=== PATIENT | male | born 1965 | race Caucasian/White ===

== ENCOUNTER 2024-09-05 04:51 | Emergency (ER) | payer OTHER, SELFPAY ==
[2024-09-05 04:53] VITALS: BP 142/93
[2024-09-05 05:04] VITALS: BP 149/100; BMI 30.3
--- NOTE | 2024-09-05 05:10 | ED.GENMED ---
History of Present Illness
<Hernan Corbett DO - Last Filed: 09/05/24 05:12>
General
Chief Complaint: Heart Rate Problem
Source: patient
Time Seen by Provider: 09/05/24 05:01
History of Present Illness
History of Present Illness:
59-year-old male presents to the emergency room complaining of pain in his right shoulder and chest. Patient was sleeping when he was awake and with pain in his right posterior thorax near the shoulder. Pain was worse with deep breath. Thought
perhaps he was sleeping wrong. He got out of bed and eventually fell back to sleep for short period of time but then awoke feeling the pain now more into his mid back and chest. He feels short of breath. He noted his heart rate was fast. Patient
has a history of hypertension high cholesterol. Denies any cardiac history. Denies any history of thromboembolic disease. Patient states that he moved his child into college in [facility]. It was a 6-hour ride there and back though not on
the same day. He denies any lower extremity pain. No fever or chills. No cough.
Phy Exam
<Hernan Corbett DO - Last Filed: 09/05/24 05:12>
Physical Exam
Physical Exam:
General: Awake, Alert, Oriented X3. Patient appears uncomfortable
Vitals: Tachycardic
Head: Atraumatic
Eyes: Pupils equal, EOMI
Throat: Airway intact, no exudates
Neck: Trachea midline
Lungs: Clear and equal b/l
Heart: Regular rate, no murmurs
Abd: Soft, Nontender, No pulsatile mass
Neuro: Nonfocal
Skin: Warm, dry, no rash
Extremities: pulses equal b/l, no edema
Scores
<Everett Cano DO - Last Filed: 09/05/24 13:30>
Heart Score for Chest Pain Patients
History: Slightly or Non-Suspicious
ECG: Nonspecific Repolarization
Age: >45 - <65 years
Risk Factors: 1 or 2 Risk Factors
Troponin: </= Normal Limit
Heart Score for Chest Pain Patients: 3
Heart Score Risk: 2.5% MACE over next 6 weeks
Course
Dukelt;Hernan SiomaraDebbie Corbett, DO - Last Filed: 09/05/24 05:12>
Orders/Labs/Results
Orders:
Orders
09/05/24 04:53
EKG- Treatment ONCE
09/05/24 04:57
Electrocardiogram (*1) Urgent
Reason for Study: Chest Pain
EKG- Treatment ONCE
09/05/24 05:08
Ketorolac [Toradol] 15 mg IV NOW STA
09/05/24 05:09
CT Chest PE Study Urgent
Comment:
Reason For Exam: pleuritic cp, recent travel
Cardiac Monitoring- Treatment ONCE
0.9% Sodium Chloride 1000 ml [Nss] 1,000 ml IV BOLUS
09/05/24 05:16
Complete Blood Count/With Diff Urgent
Comprehensive Metabolic Panel Urgent
Comment: ADD ON
D-Dimer Urgent
Lipase Urgent
Comment: ADD ON
PTT Urgent
Prothrombin Time Urgent
Troponin I Urgent
09/05/24 05:23
Ketorolac [Toradol] 15 mg .ROUTE .STK-MED ONE
09/05/24 07:39
Acetaminophen [Tylenol] 650 mg PO NOW STA
09/05/24 07:46
Troponin I Urgent
09/05/24 07:56
Add On- LAB Urgent
Tests Added?: cmp, lipase
US Abdomen Complete/Upper Urgent
Comment:
Reason For Exam: pian
09/05/24 08:17
ECG [Electrocardiogram (*1)] Urgent
Reason for Study: Chest Pain
Other Reason for Exam: repeat trop
09/05/24 08:18
EKG- Treatment ONCE
Abnormal Lab Results
09/05/24
05:16
WBC 12.1 H 10^3/uL
(4.8-10.8)
RBC 4.23 L 10^6/uL
(4.70-6.10)
MCV 96.7 H fL
(80.0-94.0)
MCH 35.0 H pg
(27.0-31.0)
Absolute Neuts (auto) 9.3 H 10^3/uL
(1.4-6.5)
Absolute Monos (auto) 0.9 H 10^3/uL
(0.1-0.6)
Neutrophils % 76.6 H %
(42.2-75.2)
Lymphocytes % 14.8 L %
(20.5-51.1)
Glucose 123 H mg/dl
(70-99)
09/05/24 05:16
09/05/24 05:16
Vital Signs
Initial and Last Documented VS:
Initial Vital Signs
Temp Pulse Resp BP Pulse Ox
98.8 F 109 18 142/93 98
09/05/24 04:53 09/05/24 04:53 09/05/24 04:53 09/05/24 04:53 09/05/24 04:53
Last Documented Vital Signs
Temp Pulse Resp BP Pulse Ox
99.5 F 88 28 108/77 98
09/05/24 05:12 09/05/24 08:00 09/05/24 08:00 09/05/24 08:00 09/05/24 08:07
Dukelt;Everett Cano, DO - Last Filed: 09/05/24 13:30>
Orders/Labs/Results
Orders:
Orders
09/05/24 04:53
EKG- Treatment ONCE
09/05/24 04:57
Electrocardiogram (*1) Urgent
Reason for Study: Chest Pain
EKG- Treatment ONCE
09/05/24 05:08
Ketorolac [Toradol] 15 mg IV NOW STA
09/05/24 05:09
CT Chest PE Study Urgent
Comment:
Reason For Exam: pleuritic cp, recent travel
Cardiac Monitoring- Treatment ONCE
0.9% Sodium Chloride 1000 ml [Nss] 1,000 ml IV BOLUS
09/05/24 05:16
Complete Blood Count/With Diff Urgent
Comprehensive Metabolic Panel Urgent
Comment: ADD ON
D-Dimer Urgent
Lipase Urgent
Comment: ADD ON
PTT Urgent
Prothrombin Time Urgent
Troponin I Urgent
09/05/24 05:23
Ketorolac [Toradol] 15 mg .ROUTE .STK-MED ONE
09/05/24 07:39
Acetaminophen [Tylenol] 650 mg PO NOW STA
09/05/24 07:46
Troponin I Urgent
09/05/24 07:56
Add On- LAB Urgent
Tests Added?: cmp, lipase
US Abdomen Complete/Upper Urgent
Comment:
Reason For Exam: pian
09/05/24 08:17
ECG [Electrocardiogram (*1)] Urgent
Reason for Study: Chest Pain
Other Reason for Exam: repeat trop
09/05/24 08:18
EKG- Treatment ONCE
Abnormal Lab Results
09/05/24
05:16
WBC 12.1 H 10^3/uL
(4.8-10.8)
RBC 4.23 L 10^6/uL
(4.70-6.10)
MCV 96.7 H fL
(80.0-94.0)
MCH 35.0 H pg
(27.0-31.0)
Absolute Neuts (auto) 9.3 H 10^3/uL
(1.4-6.5)
Absolute Monos (auto) 0.9 H 10^3/uL
(0.1-0.6)
Neutrophils % 76.6 H %
(42.2-75.2)
Lymphocytes % 14.8 L %
(20.5-51.1)
Glucose 123 H mg/dl
(70-99)
09/05/24 05:16
09/05/24 05:16
Vital Signs
Initial and Last Documented VS:
Initial Vital Signs
Temp Pulse Resp BP Pulse Ox
98.8 F 109 18 142/93 98
09/05/24 04:53 09/05/24 04:53 09/05/24 04:53 09/05/24 04:53 09/05/24 04:53
Last Documented Vital Signs
Temp Pulse Resp BP Pulse Ox
99.5 F 88 28 108/77 98
09/05/24 05:12 09/05/24 08:00 09/05/24 08:00 09/05/24 08:00 09/05/24 08:07
<Hernan Corbett DO - Last Filed: 09/05/24 05:12>
*Pulse Oximetry
SaO2: 98
Oxygen Mode of Delivery: Room air
*EKG
Interpreted by ED Provider?: Yes
Interpretation: abnormal
Heart Rate: 105
Rate: tachycardiac
Rhythm: sinus arrhythmia
[place]: normal axis
Interval: normal interval
QRS Pattern: normal QRS
Ischemia: no ischemia
*Precipitator Supervisor Interpretation
Rate: tachycardiac
Interpretation: abnormal
Heart Rate: 105
Rhythm: sinus tachycardia
<Everett Cano, DO - Last Filed: 09/05/24 13:30>
*Pulse Oximetry
Patient hypoxic: no
*Critical Care Note
Total Time (30-74mins, 75-104mins- exclusive of procedures): Not Applicable
<Everett Cano, DO - Last Filed: 09/05/24 13:30>
Update Note
Update Note:
6 AM ER attending
7:30 AM update signout pending CT chest repeat troponin CT chest no central PE patient is feeling better once abdomen is soft and nontender has some reproducible pain over her sternum will try some acetaminophen, he has no lower abdominal pain
Patient also does drink alcohol will add LFTs lipase and abdominal ultrasound
Repeat labs noted and unremarkable ultrasound noted formal report pending
ED Attending Note
<Hernan Corbett, DO - Last Filed: 09/05/24 05:12>
-
Portions of this chart may have been created with voice recognition software.� Occasional wrong word or��sound alike� substitutions may have occurred due to the inherent limitations of voice recognition software.
Discharge Plan
Departure
Patient Disposition: Home (Routine Discharge)
Date of Disposition: 09/05/24
Time of Disposition: 09:28
Patient with high blood pressure during this ER visit?: No
Condition: Good
Covid-19: Not Applicable
Discharge Problem:
Chest pain
Instructions: Chest pain - Discharge instructions
Prescriptions:
No Action
multivitamin Tablet
1 tab PO DAILY
quinapril 40 mg Tablet
40 mg PO DAILY
ascorbic acid (vitamin C) [Vitamin C] 500 mg Tablet
500 mg PO DAILY
garlic 500 mg Tablet
500 mg PO DAILY
amlodipine 10 mg Tablet
10 mg PO DAILY
aspirin [Aspirin Child] 81 mg Tablet,Chewable
81 mg PO DAILY
coenzyme Q10 [Co Q-10] 30 mg Capsule
30 mg PO DAILY
rosuvastatin 10 mg Tablet
10 mg PO DAILY
hydrochlorothiazide 12.5 mg Tablet
25 mg PO DAILY
Referrals:
UNKNOWN - PT DOES,NOT KNOW [Unknown Provider]
Activity Restrictions/Additional Instructions:
Rest, Tylenol or ibuprofen for pain
Drink plenty of fluids
Limit your alcohol use
Interventions
Interventions:
*Risk Screen - Suicide Last Done: 09/05/24 04:53
*General Assessment Last Done: 09/05/24 04:53
*Neglect/Abuse Screening Last Done: 09/05/24 04:53
*ED- Fall Risk Assessment Last Done: 09/05/24 05:06
*ED COVID-19 Vaccine History Last Done: 09/05/24 05:06
*Nursing Disposition Last Done: 09/05/24 10:36
ED- Cardiac Assessment Last Done: 09/05/24 08:07
ED- Pulmonary Assessment Last Done: 09/05/24 08:07
Discharge Date and Time
Discharge Date/Time: 09/05/24 10:20
Print Language: LATVIAN
[2024-09-05] MEDS: TORADOL 15 MG IV (05:18)
[2024-09-05] MEDS: NSS 1000 IV (05:20)
[2024-09-05 05:23] LABS: Hematocrit 40.9 % (39.0-52.0); Hemoglobin 14.8 g/dL (13.0-18.0); Mean Corp Hgb Conc. 36.2 g/dL (33.0-37.0); Mean Corpuscular Volume 96.7 fL (80.0-94.0); Nucleated Red Blood Cells % 0 % (-); Platelet Count 216 10^3/uL (130-400); Red Cell Dist. Width 12.5 % (11.5-14.5)
[2024-09-05 05:37] LABS: INR 0.95; PT 13.0 Sec (11.4-14.6)
[2024-09-05 05:38] LABS: APTT 29.9 Sec (23.4-35.0)
[2024-09-05 05:40] LABS: D-Dimer 0.36 ug/mlFEU (0.00-0.50)
[2024-09-05 05:51] LABS: Blood Urea Nitrogen 10 mg/dl (9-20); Calcium 9.2 mg/dl (8.4-10.2); Carbon Dioxide 26 mmol/L (22-30); Chloride 105 mmol/L (98-107); Estimated Creatinine Clearance > 125 ml/min; Glucose 123 mg/dl (70-99); Potassium 3.7 mmol/L (3.5-5.1); Sodium 140 mmol/L (135-145); eGFR > 60.00
[2024-09-05 06:04] LABS: Troponin I < 0.012 ng/ml
[2024-09-05 06:30] VITALS: BP 120/83
[2024-09-05 07:00] VITALS: BP 110/79
[2024-09-05] MEDS: TYLENOL 650 MG PO (07:48)
[2024-09-05 08:00] VITALS: BP 108/77
[2024-09-05 08:28] LABS: Troponin I < 0.012 ng/ml
[2024-09-05 08:31] LABS: ALT (SGPT) 47 U/L (0-50); AST (SGOT) 41 U/L (17-59); Albumin 4.9 g/dl (3.5-5.0); Alkaline Phosphatase 86 U/L (38-126); Lipase 83 U/L (23-300); Total Protein 8.0 g/dl (6.3-8.2)
== END 2024-09-05 10:20 | disposition home or self-care (01) ==
LOC: EMR 04:51
PROVIDERS: Emergency Medicine; EMERGENCY PHYSICIAN Emergency Medicine; FAMILY PHYSICIAN Family Medicine
DX: R07.89 Other chest pain (principal); M25.511 Pain in right shoulder; W06.XXXA Fall from bed, initial encounter; E78.00 Pure hypercholesterolemia, unspecified; Z01.810 Encounter for preprocedural cardiovascular examination
CPT/HCPCS: 99284; 96374; 96361; 71275; 76700; 80053; 83690; 84484; 85025; 85379; 85610; 85730; 93005; Q9967

== ENCOUNTER 2024-09-18 04:20 | Observation (INO) | payer OTHER, SELFPAY ==
[2024-09-17 18:31] VITALS: BP 139/87
[2024-09-17 19:19] LABS: Hematocrit 40.5 % (39.0-52.0); Hemoglobin 14.6 g/dL (13.0-18.0); Mean Corp Hgb Conc. 36.0 g/dL (33.0-37.0); Mean Corpuscular Volume 95.7 fL (80.0-94.0); Nucleated Red Blood Cells % 0 % (-); Platelet Count 252 10^3/uL (130-400); Red Cell Dist. Width 12.2 % (11.5-14.5)
[2024-09-17 19:31] LABS: ALT (SGPT) 35 U/L (0-50); AST (SGOT) 27 U/L (17-59); Albumin 4.7 g/dl (3.5-5.0); Alkaline Phosphatase 72 U/L (38-126); Blood Urea Nitrogen 15 mg/dl (9-20); Calcium 9.7 mg/dl (8.4-10.2); Carbon Dioxide 30 mmol/L (22-30); Chloride 102 mmol/L (98-107); Glucose 95 mg/dl (70-99); Potassium 3.6 mmol/L (3.5-5.1); Sodium 139 mmol/L (135-145); Total Protein 7.8 g/dl (6.3-8.2); eGFR > 60.00
[2024-09-17 19:43] LABS: Troponin I < 0.012 ng/ml
[2024-09-17 20:42] VITALS: BP 125/91
[2024-09-17 22:00] VITALS: BP 132/92
[2024-09-17 23:00] VITALS: BP 123/91
[2024-09-17] MEDS: PROTONIX IV 40 MG IV (23:01)
[2024-09-17] MEDS: MORPHINE SULFATE 4 MG IV (23:02)
[2024-09-17 23:18] LABS: Lipase 92 U/L (23-300)
--- NOTE | 2024-09-17 23:27 | ED.GENMED ---
History of Present Illness
General
Chief Complaint: Chest Pain
Time Seen by Provider: 09/17/24 22:27
History of Present Illness
History of Present Illness:
59-year-old male with history of hypertension hyperlipidemia presenting for upper abdominal pain with radiation to his back. Patient reports symptoms are about 2 weeks ago at which time he was seen in the hospital. He had a cardiac workup which
was unremarkable. Subsequently followed up with his primary care doctor. Reports that earlier this afternoon, symptoms returned with upper abdominal pain, radiating up his chest into his back. Denies any known history of cardiac disease. Denies
any vomiting. Denies any trigger from unusual foods. Reports pain with ration, which causes some shortness of breath. Denies fever. Denies additional acute medical
Phy Exam
Physical Exam
Physical Exam:
General: Well-appearing, no clinical signs of dehydration, nontoxic and in no acute distress
HEENT: protecting airway
Neck: appears supple
CV: Normal heart rate, regular rhythm
Resp: No accessory muscle use, no increased work of breathing, lungs clear to auscultation bilaterally
Abd: Mild distention with generalized upper abdominal discomfort including epigastric, right upper quadrant, left upper quadrant. No rebound or guarding
Extremities: No deformities, no swelling
Neuro: alert, no focal neurologic deficit
: deferred
Rectal: deferred
Psych: Normal affect
Skin: Intact
Scores
Heart Score for Chest Pain Patients
STEMI patient?: No
History: Slightly or Non-Suspicious
ECG: Normal
Age: >45 - <65 years
Risk Factors: 1 or 2 Risk Factors
Troponin: </= Normal Limit
Heart Score for Chest Pain Patients: 2
Heart Score Risk: 2.5% MACE over next 6 weeks
Course
Orders/Labs/Results
Orders:
Orders
09/17/24 18:23
ECG [Electrocardiogram (*1)] Urgent
Reason for Study: Chest Pain
EKG- Treatment ONCE
09/17/24 18:54
Complete Blood Count/With Diff Urgent
Comprehensive Metabolic Panel Urgent
Lipase Urgent
Comment: ADD ON
Troponin I Urgent
09/17/24 22:47
Add On- LAB Urgent
Tests Added?: Lipase
09/17/24 22:56
CT Abd/pelvis W Iv Cont Urgent
Comment:
Reason For Exam: upper abdominal pain
Morphine Sulfate 4 mg IV NOW STA
09/17/24 22:58
Pantoprazole [Protonix IV] 40 mg IV NOW STA
09/18/24 01:12
Electrocardiogram (*1) Urgent
Reason for Study: Chest Pain
EKG- Treatment ONCE
Mag Hydrox/Al Hydrox/Simeth [Maalox] 30 ml PO NOW STA
09/18/24 01:35
Troponin I Urgent
Abnormal Lab Results
09/17/24
18:54
RBC 4.23 L 10^6/uL
(4.70-6.10)
MCV 95.7 H fL
(80.0-94.0)
MCH 34.5 H pg
(27.0-31.0)
Absolute Neuts (auto) 7.6 H 10^3/uL
(1.4-6.5)
Absolute Monos (auto) 0.8 H 10^3/uL
(0.1-0.6)
Lymphocytes % 19.3 L %
(20.5-51.1)
09/17/24 18:54
09/17/24 18:54
Vital Signs
Initial and Last Documented VS:
Initial Vital Signs
Temp Pulse BP Pulse Ox
98.4 F 89 139/87 98
09/17/24 18:31 09/17/24 18:31 09/17/24 18:31 09/17/24 18:31
Last Documented Vital Signs
Temp Pulse Resp BP Pulse Ox
98.3 F 91 19 116/84 94
09/17/24 20:42 09/18/24 03:00 09/18/24 03:00 09/18/24 03:00 09/18/24 03:00
MDM/Problems Addressed
MDM/Problems Addressed:
59-year-old male presenting for return of upper abdominal discomfort with radiation to the chest. Vital signs on arrival are normal.
On exam, patient is resting comfortably, however does appear uncomfortable secondary to symptoms. EKG obtained on arrival, no acute ischemic abnormality or significant change prior. ED visit reviewed from 09/05, extensive workup including CT of the
chest, without evidence of PE, normal appearance of the aorta. For this reason, without present concern for PE or aortic dissection. Patient also had a right upper quadrant ultrasound completed, notes and history of alcohol usage, focal right
upper quadrant tenderness, without acute abnormality on ultrasound imaging. Labs repeated prior to my assessment, undetectable troponin. Again without present concern for ACS. Will add on lipase and proceed with dedicated CT abdomen imaging given
location of present pain and return of symptoms. Morphine and pantoprazole administered for pain, with possibility of gastritis.
01:00 -CT without acute process. Reports that pain has improved, still present. For this reason we will send second troponin. However at this time ultimately suspect quality of symptoms.
03:00 - Repeat troponin is undetectable. Patient otherwise remained stable. Feel stable for discharge, however on reassessment, patient is still reporting severe pain. Patient ambulated and continues to report dyspnea. He notes that his pain is
no worse and he does not feel comfortable going home given his level of pain. This reason will admit for cardiac consultation, possible GI consultation.
*Pulse Oximetry
SaO2: 94
Oxygen Mode of Delivery: Room air
Patient hypoxic: no
*EKG
Interpreted by ED Provider?: Yes
EKG Intrepretation Date: 09/17/24
EKG Intrepretation Time: 23:30
Interpretation: normal
Comparison EKG: no changes
Heart Rate: 85
Rate: normal
Rhythm: sinus
[place]: normal axis
Interval: normal interval
QRS Pattern: normal QRS
Ischemia: no ischemia
*Critical Care Note
Total Time (30-74mins, 75-104mins- exclusive of procedures): Not Applicable
ED Attending Note
-
Portions of this chart may have been created with voice recognition software.� Occasional wrong word or��sound alike� substitutions may have occurred due to the inherent limitations of voice recognition software.
Discharge Plan
Departure
Patient Disposition: Admit
Date of Disposition: 09/18/24
Time of Disposition: 02:24
Presentation/result/management discussed w/ accepting /: Hospitalist
Patient with high blood pressure during this ER visit?: No
Condition: Good
Discharge Problem:
Abdominal pain, epigastric
Prescriptions:
New
pantoprazole 20 mg tablet,delayed release (DR/EC)
20 mg PO DAILY Qty: 30 0RF
alum-mag hydroxide-simeth [Maalox Advanced] 200-200-20 mg/5 mL suspension
10 ml PO QID PRN (Reason: dyspepsia) Qty: 3000 0RF
No Action
multivitamin Tablet
1 tab PO DAILY
quinapril 40 mg Tablet
40 mg PO DAILY
ascorbic acid (vitamin C) [Vitamin C] 500 mg Tablet
500 mg PO DAILY
garlic 500 mg Tablet
500 mg PO DAILY
amlodipine 10 mg Tablet
10 mg PO DAILY
aspirin [Aspirin Child] 81 mg Tablet,Chewable
81 mg PO DAILY
coenzyme Q10 [Co Q-10] 30 mg Capsule
30 mg PO DAILY
rosuvastatin 10 mg Tablet
10 mg PO DAILY
hydrochlorothiazide 12.5 mg Tablet
25 mg PO DAILY
Referrals:
Joey Vicente MD [Active, Cardiology]
Anil Johns DO [Family Provider, Family Practice]
Oren Bernal DO [Active, Gastroenterology]
Interventions
Interventions:
*Risk Screen - Suicide Last Done: 09/17/24 22:48
*General Assessment Last Done: 09/17/24 22:31
*Neglect/Abuse Screening Last Done: 09/17/24 22:48
*ED- Fall Risk Assessment Last Done: 09/17/24 22:31
ED- Cardiac Assessment Last Done: 09/17/24 22:49
Discharge Date and Time
Print Language: ARMENIAN
[2024-09-17 23:44] VITALS: BP 113/80
[2024-09-18] VITALS (10 sets, daily range): BP systolic 105–127; BP diastolic 69–93
[2024-09-18] MEDS: MAALOX 30 ML PO (01:34)
[2024-09-18 02:24] LABS: Troponin I < 0.012 ng/ml
--- NOTE | 2024-09-18 02:55 | EDRN ---
Pt ambulated with steady gait, pt reported pain to epigastric region and felt SOB during ambulation. Dr. Ramirez made aware.
--- NOTE | 2024-09-18 04:02 | HPS.HSE ---
Family Physician
-
Family Physician: Anil Johns
Chief Complaint
-
Chest Pain, SOB
History of Present Illness
Patient is a 59y M with PMH significant for hypertension and ANKUSH who presents to ED complaining of chest pain and SOB. Patient states that he was feeling very well until about 5 PM today when he had sudden onset of 'tightness' across the upper
back and chest heaviness. Patient felt SOB and noted that he had severe pain with movement or breathing. He presented to the ED for further evaluation.
Patient had similar symptoms about 2 weeks ago. He was evaluated here in the ED and treated with Toradol with improvement in his symptoms. He took Advil and Tylenol at home for several days and his symptoms fully resolved.
CT PE study was done at that time and was unremarkable. Abdominal US was done at that time and was unremarkable. Troponin was undetectable x 2 sets.
Patient was able to return to his usual daily activities and has had no other issues until today. He denies ay other prior history of similar symptoms.
No personal nor family history of ID, CVA, etc.
No recent cough, fevers/chills, N/V/D, etc.
In the ED today, patient had CT A/P which was unremarkable and troponin undetectable x another 2 sets.
His pain is not improved from initial arrival.
Medical History
Past Medical History
Past Medical History: Reports Other
Additional Past Medical History:
Hypertension
ANKUSH on CPAP
Past Surgical History: Reports Other
Additional Past Surgical History:
UP3
Social History
Tobacco: Non-smoker
Alcohol: Occasional
Drug: None
Personal:
Family History
Family History: Other (Mother / Father have hypertension. No family history of heart disease.)
Allergies / Home Medications
Allergies reflects when Allergies were last updated in [facility].
Home Medications with original date entered in [employer]
Allergy/Medication List:
Allergies
Allergy/AdvReac Type Severity Reaction Status Date / Time
No Known Allergies Allergy Verified 09/17/24 18:35
Home Medications
amlodipine 10 mg tablet 10 mg PO DAILY 09/05/24
ascorbic acid (vitamin C) 500 mg tablet (Vitamin C) 500 mg PO DAILY 09/05/24
aspirin 81 mg chewable tablet 81 mg PO DAILY 09/05/24
coenzyme Q10 30 mg capsule (Co Q-10) 30 mg PO DAILY 09/05/24
garlic 500 mg tablet 500 mg PO DAILY 09/05/24
hydrochlorothiazide 12.5 mg tablet 25 mg PO DAILY 09/05/24
multivitamin 1 tab PO DAILY 09/05/24
quinapril 40 mg tablet 40 mg PO DAILY 09/05/24
rosuvastatin 10 mg tablet 10 mg PO DAILY 09/05/24
Review of Systems
-
History Source: Patient
A 12 point ROS was completed and negative except as noted: Yes
Constitutional: Denies Fever or Chills
EENT: Denies Sore Throat
Respiratory: Reports Trouble Breathing; Denies Cough or Hemoptysis
Cardiac: Reports Chest Pain; Denies Diaphoresis, Palpitations or Syncope
Abdomen/GI: Denies Abdominal Pain, Nausea, Vomiting or Diarrhea
: Denies Dysuria or Frequency
Musculoskeletal: Denies Joint Pain or Edema
Neurological: Denies Dizzy or Headache
Psych: Reports Anxiety
Physical Exam
Vital Signs
Vital Signs
Temp Pulse Resp BP Pulse Ox
98.3 F 91 19 116/84 94
09/17/24 20:42 09/18/24 03:00 09/18/24 03:00 09/18/24 03:00 09/18/24 03:00
Physical Exam
General: Other (59y M in mild distress due to discomfort / anxiety.)
HEENT: Moist mucous membranes and PERRLA
Respiratory: Clear and Other (Decreased BS due to diminished effort.); No Wheezes, Rales or Rhonchi
Cardiac: S1/S2 and Regular Rhythm; No Murmur
GI: Soft, Non Tender, Non Distended and Normal Bowel Sounds
Musculoskeletal: No Clubbing, No Cyanosis and No Edema
Neuro: AO x 3
Laboratory Results
-
09/17/24 18:54
09/17/24 18:54
Laboratory Results
Total Bilirubin 0.6 mg/dl (0.2-1.3) 09/17/24 18:54
AST 27 U/L (17-59) 09/17/24 18:54
ALT 35 U/L (0-50) 09/17/24 18:54
Alkaline Phosphatase 72 U/L (38-126) 09/17/24 18:54
Troponin I < 0.012 ng/ml 09/18/24 01:35
Lipase 92 U/L (23-300) 09/17/24 18:54
Impression/Plan
-
A/P: Patient is a 59y M with PMH significant for hypertension and ANKUSH who presents to ED complaining of chest pain and shortness of breath.
Pleuritic Pain / Dyspnea
- Observe overnight for further evaluation and treatment.
- Symptoms seem most c/w recurrent pleurisy with remainder of evaluations proving entirely unremarkable thus far.
- Toradol x 1 dose now.
- PRN anti-inflammatories and follow for clinical effect.
- Check ESR, CRP, etc.
- Echo in AM.
- Follow for clinical improvement and / or any new or worsening symptoms.
- PE, coronary ischemia, pneumonia, dissection, etc ruled out by evaluation thus far.
Benign Hypertension
- Stable. Continue home medications.
ANKUSH
- Stable. Continue nightly PAP therapy.
DVT Prophylaxis: SCDs
Code Status: Full
[2024-09-18] MEDS: TORADOL 15 MG IV (04:53)
[2024-09-18] MEDS: LR 1000 IV (04:53)
[2024-09-18 06:57] LABS: Hematocrit 34.9 % (39.0-52.0); Hemoglobin 13.0 g/dL (13.0-18.0); Mean Corp Hgb Conc. 37.2 g/dL (33.0-37.0); Mean Corpuscular Volume 95.6 fL (80.0-94.0); Platelet Count 206 10^3/uL (130-400); Red Cell Dist. Width 11.9 % (11.5-14.5)
[2024-09-18 07:14] LABS: Blood Urea Nitrogen 12 mg/dl (9-20); Calcium 8.6 mg/dl (8.4-10.2); Carbon Dioxide 27 mmol/L (22-30); Chloride 106 mmol/L (98-107); Glucose 127 mg/dl (70-99); HDL Cholesterol 56 mg/dl; LDL Cholesterol, Calculated 77 mg/dl; Potassium 3.5 mmol/L (3.5-5.1); Sodium 137 mmol/L (135-145); Very Low Density Lipoprotein 13 mg/dl (0-30); eGFR > 60.00
[2024-09-18 07:18] LABS: C-Reactive Protein 29.40 mg/L (0.0-10.00)
[2024-09-18] MEDS: NORVASC 10 MG PO (08:18)
[2024-09-18] MEDS: PROTONIX 40 MG PO (08:18)
[2024-09-18] MEDS: ZESTRIL 40 MG PO (08:18)
[2024-09-18] MEDS: CRESTOR 10 MG PO (08:18)
--- NOTE | 2024-09-18 11:10 | CM ---
CM reviewed chart and met with pt and his bedside in ED.
Lives with , independent in ADLs, personal care and ambulation at baseline. Has CPAP machine, no other DME.
No hx VN/SNF.
PCP: Anil Johns
Pharmacy: [address]
DIscharge plan: Anticipate home pending ongoing medical evaluation, watch for needs
--- NOTE | 2024-09-18 11:12 | W.PN.UPDATE ---
Update Note
Progress Note Update
Seen and examined independent of overnight physician.
States yesterday he had recurrence of midsternal pain radiating bilaterally and also felt mild shortness of breath. Currently pain has significantly improved however not completely free. Denies any lower extremity edema, PND orthopnea. Denies any
recent fevers or chills. No GI symptoms.
General: In no acute distress
HEENT: Moist mucous membranes
Respiratory: Clear and Other (Decreased BS due to diminished effort.); No Wheezes, Rales or Rhonchi
Cardiac: S1/S2 and Regular Rhythm; No Murmur
GI: Soft, Non Tender, Non Distended and Normal Bowel Sounds
Musculoskeletal: No Clubbing, No Cyanosis and No Edema
Neuro: AO x 3
A/P: Patient is a 59y M with PMH significant for hypertension and ANKUSH who presents to ED complaining of chest pain and shortness of breath.
Midsternal chest pain/dyspnea on exertion
- PRN anti-inflammatories and follow for clinical effect.
- Check ESR, CRP, mild elevation
- Echo pending. Trope negative x 2. EKG normal sinus rhythm. No acute ST or T wave changes noted.
- Follow for clinical improvement and / or any new or worsening symptoms.
- CT angiogram was negative for dissection or other acute abdominal pathology. Patient has CT chest 2 weeks ago which was negative for pulmonary embolism. Repeat D-dimer. No tachycardia. No hypoxemia.
- Will ask cardiology for input
Benign Hypertension
- Stable. Continue with Norvasc and lisinopril. Restart HCTZ depending on blood pressure in next 24 hours. Hold parameters added. Currently BP 108/78
ANKUSH
- Stable. Continue nightly PAP therapy.
DVT Prophylaxis: Lovenox
Code Status: Full
Discussed with patient spouse at bedside in details
--- NOTE | 2024-09-18 13:13 | CON.CAR ---
Consultation
Consultation Request
Date/Time Consultation Requested: September 18, 2024 11:30 AM
Date/Time Consultation Performed: September 18, 2024 1:15 PM
Requesting Provider: Hospitalist
Performing Provider: Avery Mcgregor
Reason for Consultation: Chest pain
Medical History
-
Chief Complaint: Chest pain
History of Present Illness:
59-year-old male with past medical history of hypertension obstructive sleep apnea who is here for evaluation of chest tightness and shortness of breath. He tells me that this occurred approximately 2 weeks ago where he woke from sleeping with
right shoulder pain that radiated to the back and then developed some chest tightness and shortness of breath. Workup in the emergency room was unremarkable and he took ibuprofen as well as Tylenol which seemed to help his symptoms over a couple
days. Now, 2 weeks later he has return of symptoms. It seems to have occurred while he was at rest. He has no association with exertion. It does relieved with sitting up and leaning forward. It also was relieved with Toradol and NSAIDs. I
discussed with him my concern for possible pericarditis given his relief with NSAIDs as well as symptom relief with leaning forward and sitting up. Additionally, he has worsened chest pain with deep inspiration. We discussed how this all points to
possible pericarditis and we will treat him as such.
Past Medical History
Past Medical History: Other (Hypertension ANKUSH on CPAP)
Social History
Tobacco: Non-Smoker
Alcohol: Occasional
Drug: None
Personal:
Living: With Family
Employment: Employed
Family History
Family History: Reviewed & Not Pertinent
Allergies / Home Medications
Allergy/AdvReac Type Severity Reaction Status Date / Time
No Known Allergies Allergy Verified 09/17/24 18:35
�Medication �Instructions �Recorded �Confirmed �Type
amlodipine 10 mg tablet 10 mg PO HS 09/05/24 09/18/24 History
ascorbic acid (vitamin C) 500 mg 500 mg PO DAILY 09/05/24 09/18/24 History
tablet (Vitamin C)
coenzyme Q10 30 mg capsule (Co 30 mg PO DAILY 09/05/24 09/18/24 History
Q-10)
rosuvastatin 10 mg tablet 10 mg PO HS 09/05/24 09/18/24 History
aspirin 81 mg tablet,delayed 81 mg PO QPM 09/18/24 09/18/24 History
release
garlic 300 mg capsule 300 mg PO DAILY 09/18/24 09/18/24 History
hydrochlorothiazide 25 mg tablet 25 mg PO QPM 09/18/24 09/18/24 History
lisinopril 10 mg tablet 10 mg PO HS 09/18/24 09/18/24 History
therapeutic multivitamin 1 tab PO QPM 09/18/24 09/18/24 History
Review of Systems
-
All other systems: Negative unless noted
Physical Exam
Vital Signs
Temp Pulse Resp BP Pulse Ox
97.7 F 87 18 108/78 92
09/18/24 07:05 09/18/24 06:00 09/18/24 06:00 09/18/24 08:18 09/18/24 06:00
Lab Results
09/18/24 06:42
09/18/24 06:42
Troponin I < 0.012 ng/ml 09/18/24 01:35
Physical Exam
General: Well Developed, Well Nourished and No Apparent Distress
HEENT: Normocephalic
Respiratory: Clear
Cardiac: S1/S2 and Regular Rhythm
GI: Soft
Musculoskeletal: No Clubbing, No Cyanosis and No Edema
Skin: Warm and Dry
Neuro: AO x 3
Psych: Calm
Impression / Plan
-
A/P. 59-year-old male with past medical history of hypertension ANKUSH on CPAP who is here with chest pain. Given his unremarkable labs as well as symptoms including pleuritic chest discomfort, pain improved with NSAIDs and relievewed with sitting up
and leaning forward seems to be most consistent with acute pericarditis. His neg troponins during active CP and no symptoms with exertion point less likely to an ischemic cause which we discussed.
Acute pericarditis
- Echo as below
- Colchicine 0.6 mg twice daily for 6 months
- Ibuprofen taper; 800 mg 3 times daily for 1 week, then 600 mg 3 times daily for 1 week, 400 mg 3 times daily for 1 week, 200 mg 3 times daily for 1 week and then stop
- PPI for GI prophylaxis during ibuprofen taper
Echo September 18, 2024:CONCLUSIONS
Normal biventricular size and systolic function without regional wall motion
abnormality.
LV ejection fraction is 55-60% by visual assessment. Normal diastolic function.
No significant valvular disease.
Aortic root top normal (4.0 cm) Valsalva dilatation. The aortic arch is 3.9
cm.
Compared to prior from June 23, 2022, no significant change.
Data Reviewed
-
EKG: Tracing Personally Visualized and interpreted (sr)
Medical Tests (Nuc Med, Echo etc): Image Personally Visualized and interpreted
Labs: Labs Reviewed by me
[2024-09-18] MEDS: MOTRIN 800 MG PO (13:17)
[2024-09-18] MEDS: COLCHICINE 0.6 MG PO ×2 (13:17→20:05)
[2024-09-18] MEDS: LOVENOX 40 MG SC (18:37)
[2024-09-19 03:23] VITALS: BP 102/69
[2024-09-19 07:15] VITALS: BP 107/70
[2024-09-19] MEDS: CRESTOR 10 MG PO (08:11)
[2024-09-19] MEDS: PROTONIX 40 MG PO (08:11)
[2024-09-19] MEDS: NORVASC 10 MG PO (08:11)
[2024-09-19] MEDS: ZESTRIL 40 MG PO (08:11)
[2024-09-19] MEDS: COLCHICINE 0.6 MG PO (08:12)
[2024-09-19] MEDS: MOTRIN 800 MG PO (08:21)
[2024-09-19 08:27] LABS: Hematocrit 37.3 % (39.0-52.0); Hemoglobin 13.4 g/dL (13.0-18.0); Mean Corp Hgb Conc. 35.9 g/dL (33.0-37.0); Mean Corpuscular Volume 97.4 fL (80.0-94.0); Nucleated Red Blood Cells % 0 % (-); Platelet Count 212 10^3/uL (130-400); Red Cell Dist. Width 12.2 % (11.5-14.5)
[2024-09-19 09:08] LABS: ALT (SGPT) 26 U/L (0-50); AST (SGOT) 22 U/L (17-59); Albumin 4.1 g/dl (3.5-5.0); Alkaline Phosphatase 68 U/L (38-126); Blood Urea Nitrogen 9 mg/dl (9-20); Calcium 8.6 mg/dl (8.4-10.2); Carbon Dioxide 25 mmol/L (22-30); Chloride 107 mmol/L (98-107); Estimated Creatinine Clearance > 125 ml/min; Glucose 106 mg/dl (70-99); Potassium 4.1 mmol/L (3.5-5.1); Sodium 140 mmol/L (135-145); Total Protein 6.8 g/dl (6.3-8.2); eGFR > 60.00
[2024-09-19 10:49] LABS: Glycohemoglobin (HgbA1c) 5.2 % (4.0-5.6)
--- NOTE | 2024-09-19 10:55 | W.PN.HOSP.TC ---
Today's Communication/Plan
-
Colchicine and ibuprofen
DC today
Assessment / Plan
Assessment / Plan
A/P: Patient is a 59y M with PMH significant for hypertension and ANKUSH who presents to ED complaining of chest pain and shortness of breath.
Midsternal chest pain/dyspnea on exertion likely secondary to acute pericarditis
- Prior to this admission patient's symptoms significantly improved with anti-inflammatory at home
- Check ESR, CRP, mild elevation
- Echo noted trope negative x 2. EKG normal sinus rhythm. No acute ST or T wave changes noted.
- Follow for clinical improvement and / or any new or worsening symptoms.
- CT angiogram was negative for dissection or other acute abdominal pathology.
- Patient started on colchicine 0.6 mg twice daily and ibuprofen standing taper regimen per cardiology. PPI prescription sent in by cardiology already.
- Follow-up outpatient with primary credit compliance officer
Benign Hypertension
- Stable. Continue with Norvasc and lisinopril and hydrochlorothiazide.
ANKUSH
- Stable. Continue nightly PAP therapy.
DVT Prophylaxis: Lovenox
Code Status: Full
Discussed with patient spouse at bedside in details
More than 30 minutes spent in discharge including
Final examination of the patient
Summarizing hospital stay
Instructions for continuing care to all relevant caregivers
Preparation of discharge records, prescriptions, and referral forms
Total time spent (in minutes): 52
Anticipated Discharge: Today
Subjective/Interval History
-
Date of Service: September 19, 2024
States he is feeling significantly better
Was able to ambulate without significant chest pain or shortness of breath
Objective Data
-
Labs:
Laboratory Results
09/19/24
08:14
WBC 5.2
Hgb 13.4
Hct 37.3 L
Plt Count 212
Sodium 140
Potassium 4.1
Chloride 107
Carbon Dioxide 25
BUN 9
Creatinine 0.6 L
Glucose 106 H
Calcium 8.6
Total Bilirubin 1.0
AST 22
ALT 26
Alkaline Phosphatase 68
Vital Signs:
Vital Signs
Temp Pulse Resp BP Pulse Ox
98.2 F 69 18 107/70 94
09/19/24 07:15 09/19/24 07:15 09/19/24 07:15 09/19/24 07:15 09/19/24 07:15
I&O
09/18/24 09/19/24 09/20/24
06:59 06:59 06:59
Intake Total 480 / 480
Balance 480 / 480
Physical Exam
-
General: Well Developed and No Apparent Distress
HEENT: Normocephalic, Atraumatic and Moist Mucous Membranes
Respiratory: Clear to Auscultation
Cardiac: Regular Rhythm and S1/S2; Negative Murmur, Rub or Gallop
GI: Soft, Nontender, Nondistended and Normal Bowel Sounds; Negative Organomegaly
Rectal: Deferred by Provider
Musculoskeletal: No Clubbing, No Cyanosis and No Edema
Skin: Negative Rash
Neuro: Nonfocal/Grossly Intact
--- NOTE | 2024-09-19 11:11 | W.DCSUMMARY ---
Discharge Summary
Discharge Data
Date of Admission: 09/18/24
Date of Discharge: 09/19/24
-
Pending Results: No
Hospital Course
59-year-old male past medical history of hypertension who is presenting from home with complaint of epigastric chest discomfort and shortness of breath. Patient came into the ER 2 weeks ago and was discharged after undergoing CAT scan of the chest.
Patient repeat admission with similar symptomology with significant chest discomfort. Patient underwent CT abdomen pelvis which was negative for acute pathology. Patient troponin were checked were found to be negative x 2. Patient's symptoms
improved with anti-inflammatory. CRP was elevated. Cardiology was consulted as she was suspicious for pericarditis. Patient was started on colchicine with ibuprofen. Patient's symptoms significantly improved. Patient was to continue on
colchicine 0.6 mg twice daily and ibuprofen taper regimen as recommended by cardiology. Patient was also started PPI and prescription was sent by cardiology. Patient will need to follow-up outpatient with cardiology for further management.
Patient with significant improvement in symptoms. Patient was ambulating. All patient and spouse questions were answered and they verbalized understanding about discharge planning.
Discharge Plan
-
Patient Disposition: Home (Routine Discharge)
Discharge Diagnosis/Procedures: Acute pericarditis
Condition: Fair
Diet: Regular
Activity: As tolerated
Driving Restrictions: As prior to admission
Blood Work: CBC and BMP in 1 week via primary doctor
Activity Restrictions/Additional Instructions:
Colchicine 0.6 mg twice daily for 6 months
Ibuprofen taper; 800 mg 3 times daily for 1 week, then 600 mg 3 times daily for 1 week, 400 mg 3 times daily for 1 week, 200 mg 3 times daily for 1 week and then stop-Over the counter
Referrals:
Avery Mcgregor MD [Active, Cardiology] - in three to four weeks
Anil Johns DO [Family Provider, Family Practice]
Prescriptions:
New
colchicine 0.6 mg Tablet
0.6 mg PO BID 30 Days Qty: 60 0RF
ibuprofen 200 mg capsule
See Rx Instructions .ROUTE .COMPLEX Qty: 192 0RF
Rx Instructions:
800mg 3 times daily for 1 week, then 600mg 3 times daily for 1 week, 400mg 3 times daily for 1 week, 200mg 3 times daily for 1 week and then stop
Continued
ascorbic acid (vitamin C) [Vitamin C] 500 mg Tablet
500 mg PO DAILY
amlodipine 10 mg Tablet
10 mg PO HS
coenzyme Q10 [Co Q-10] 30 mg Capsule
30 mg PO DAILY
rosuvastatin 10 mg Tablet
10 mg PO HS
garlic 300 mg Capsule
300 mg PO DAILY
therapeutic multivitamin Tablet
1 tab PO QPM
aspirin 81 mg Tablet,Delayed Release (Dr/Ec)
81 mg PO QPM
lisinopril 10 mg Tablet
10 mg PO HS
hydrochlorothiazide 25 mg Tablet
25 mg PO QPM
Discharge Orders:
Discharge Patient (As Directed); Ordered 09/19/24
Ordered By: Mango Soliman
Discharge Date and Time
Discharge Date/Time: 09/19/24 12:37
Print Language: AUSTRIAN
--- NOTE | 2024-09-19 11:35 | CM ---
Patient with Dx Midsternal chest pain/dyspnea on exertion likely secondary to acute pericarditis. Room air. Per nurse; A/O, ambulatory by self in room.
Spoke with patient who was preparing for d/c. The patient says he feels ready to go home today. His was at the bedside and will provide transport home.
No CM d/c needs identified.
Plan home today.
[2024-09-19 11:37] VITALS: BP 118/74
== END 2024-09-19 12:37 | disposition home or self-care (01) ==
LOC: 1 ACUTE 04:20
PROVIDERS: Emergency Medicine; ADMITTING PHYSICIAN Hospitalist; ATTENDING PHYSICIAN Hospitalist; CONSULT PHYSICIAN Internal Medicine Cardiovascular Disease; EMERGENCY PHYSICIAN Student in an Organized Health Care Education/Training Program; FAMILY PHYSICIAN Family Medicine
DX: I30.9 Acute pericarditis, unspecified (principal); I10 Essential (primary) hypertension; G47.33 Obstructive sleep apnea (adult) (pediatric); E78.5 Hyperlipidemia, unspecified; K76.0 Fatty (change of) liver, not elsewhere classified; Z79.82 Long term (current) use of aspirin; Z79.899 Other long term (current) drug therapy; Z82.49 Family history of ischemic heart disease and other diseases of the circulatory system
CPT/HCPCS: 74177; 80048; 80053; 80061; 83036; 83690; 84484; 85025; 85027; 85652; 86140; 93005; 93306; 96374; 96375; 99285; G0378; Q9967